=== PATIENT | female | born 1945 | race Caucasian/White ===

== ENCOUNTER → 2016-12-31 | Outpatient (CLI) | payer OTHER ==
--- NOTE | 2016-12-31 11:08 | KCIC ---
EXAM: Lumbar spine MRI without contrast. HISTORY: Right lower extremity radiculopathy and lower back pain. TECHNIQUE: Multiplanar, multisequence magnetic resonance imaging of the lumbar spine was performed without contrast. COMPARISON: None. FINDINGS: There is grade 1 anterolisthesis of L4 on L5, measuring 3 mm. There is minimal endplate remodeling at multiple levels. There is a small T2 hyperintense and T1 hypointense lesion within the anterior inferior aspect of L1, likely an atypical hemangioma. No suspicious osseous lesion is seen. The conus terminates at L2. There is a small left renal cyst. There is bilateral renal atrophy. At L1-L2, there is left greater than right anterior endplate osteophytosis. There is no stenosis. At L2-L3, there is a disc bulge and right anterior predominant endplate osteophytosis. There is mild right and moderate left facet arthropathy. There is hypertrophy of the ligamentum flavum. There is no stenosis. At L3-L4, there is a disc bulge with suspected left extraforaminal annular tear and right anterior predominant endplate osteophytosis. There is moderate facet arthropathy. There is hypertrophy of the ligamentum flavum. There is minimal central canal stenosis. At L4-L5, there is a posterior central disc protrusion and annular tear superimposed on a disc bulge and endplate remodeling. There is severe facet arthropathy. There is a 7 mm right facet joint synovial cyst projecting into the right lateral central canal abutting the traversing right nerve roots. There is hypertrophy of the ligamentum flavum. There is grade 1 anterolisthesis. There is mild to moderate central canal stenosis. At L5-S1, there is moderate facet arthropathy. There is no stenosis. IMPRESSION: 1. Multilevel degenerative change within the lumbar spine, described in detail above. These findings are most significant at L4-L5, resulting in mild to moderate central canal stenosis with deviation of the traversing right nerve roots. 2. Grade 1 anterolisthesis of L4 and L5. Electronically signed by: Johana Rausch MD (12/31/2016 11:04 AM) [facility]
== END ==
LOC: KCIC MRI 09:49
PROVIDERS: ATTEND Family Medicine
CPT/HCPCS: 72148

== ENCOUNTER 2017-01-19 18:58 | Inpatient (IN) | payer MEDICARE, OTHER ==
[~2017-01-19] VITALS: Ht 170.2 cm; Wt 115.2 kg
[2017-01-19 19:50] VITALS: BP 165/94
[2017-01-19] MEDS ORDERED: MORPHINE SULFATE 4 MG/ML DISP.SYRIN. IV PRN (22:30)
[2017-01-19] MEDS ORDERED: ACETAMINOPHEN 325 MG TABLET. PO PRN (22:30)
[2017-01-19] MEDS ORDERED: ONDANSETRON PF 4 MG/2 ML VIAL. IV PRN (22:30)
[2017-01-19 23:00] VITALS: BP 136/56
[2017-01-20] VITALS (9 sets, daily range): BP systolic 77–179; BP diastolic 33–75
[2017-01-20] MEDS ORDERED: OMEP20TA63 PO (04:58)
[2017-01-20] MEDS ORDERED: PROP225T2 PO (04:58)
[2017-01-20] MEDS ORDERED: DOCU100C28 PO (04:58)
[2017-01-20] MEDS ORDERED: APIX5TAB PO (04:58)
[2017-01-20 05:22] LABS: INR 1.4 (0.8-1.1); PROTHROMBIN TIME PATIENT 16.1 SEC (11.7-14.0)
--- NOTE | 2017-01-20 08:05 | EKG ---
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
--- NOTE | 2017-01-20 08:58 | PDOC1 ---
History and Physical Date of Admission Date of Admission DATE: 01/20/17 TIME: 08:55 History of Present Illness History of Present Illness transfer from [facility] for left knee pain, acute fall and hematoma with large bulla on anterior skin. She has been dizzy when she stands, and has seen a farm rancher, known problem of blood pressure dropping when she stands, has afib, has been admitted to [facility] for RVR, has been rate controlled now on rhythmol, and takes Eliquis for CVA prevention. She fell at home, and was able to walk to [facility], Past Medical History Cardiovascular: AFIB, CHF Pulmonary: No pertinent hx GI: No pertinent hx Heme/Onc: No pertinent hx Hepatobiliary: No pertinent hx Psych: No pertinent hx Musculoskeletal: low back pain Rheumatologic: No pertinent hx Infectious disease: No pertinent hx ENT: No pertinent hx Endocrine: No pertinent hx Dermatology: No pertinent hx Family History Family History: No Significant Social History Smoke: No ALCOHOL: none Drugs: None Current Medications Current Medications Current Medications Ondansetron HCl (Zofran) 4 mg PRN Q6HRS PRN IV NAUSEA/VOMITING; Start at 22:30 Acetaminophen (Tylenol) 650 mg PRN Q6HRS PRN PO MILD PAIN / TEMP; Start at 22:30 Morphine Sulfate 2 mg PRN Q2HR PRN IV PAIN; Start 01/19/17 at 22:30 Docusate Sodium (Colace) 100 mg DAILY PO ; Start 01/20/17 at 09:00 Pantoprazole Sodium (Protonix) 40 mg DAILYAC PO ; Start 01/20/17 at 09:00 Propafenone HCl (Rythmol) 225 mg Q8HRS PO ; Start 01/20/17 at 14:00 Active Scripts Active Reported Docusate Sodium 100 Mg Capsule 100 Mg PO Prilosec Otc (Omeprazole Magnesium) 20 Mg Tablet.dr 20 Mg PO DAILY Propafenone Hcl 225 Mg Tablet 225 Mg PO Q8HRS Eliquis (Apixaban) 5 Mg Tablet 5 Mg PO BID Allergies Allergies: Coded Allergies: Sulfa (Sulfonamide Antibiotics) (Verified Allergy, Unknown, 01/19/17) ROS General: YES: Fatigue, No: Chills, Night Sweats, Malaise, Appetite, Other PSYCHOLOGICAL ROS: No: Anxiety, Behavioral Disorder, Concentration difficultie , Decreased libido, Depression, Disorientation, Hallucinations, Hostility, Irritablity, Memory difficulties, Mood Swings, Obsessive thoughts, Other Eyes: No Blurry vision, No Decreased vision, No Double vision, No Dry eyes, No Excessive tearing, No Eye Pain, No Itchy Eyes, No Loss of vision, No Photophobia , No Scotomata, No Uses contacts, No Uses glasses, No Other HEENT: No: Heacaches, Visual Changes, Hearing change, Nasal congestion, Nasal discharge, Oral lesions, Sinus pain, Sore Throat, Epistaxis, Sneezing, Snoring, Tinnitus, Vertigo, Vocal changes, Other Cardiovascular: No Chest Pain, No Palpitations, No Orthopnea, No Paroxysmal Noc. Dyspnea, No Edema, No Lt Headedness, No Other Gastrointestinal: Yes Other (only stools twice a week, tuesday and tuesday), No Nausea, No Vomiting, No Abdominal Pain, No Diarrhea, No Constipation, No Melena, No Hematochezia Genitourinary: No Dysuria, No Frequency, No Incontinence, No Hematuria, No Retention, No Discharge, No Urgency, No Pain, No Flank Pain, No Other, No , No , No , No , No , No , No Musculoskeletal: Yes Joint Stiffness, Yes Pain In: (back), No Gait Disturbance, No Joint Pain, No Joint Swelling, No Muscle Pain, No Muscular Weakness, No Swelling In:, No Other Neurological: No Behavorial Changes, No Bowel/Bladder ControlChng, No Confusion , No Dizziness, No Gait Disturbance, No Headaches, No Impaired Coord/balance, No Memory Loss, No Numbness/Tingling, No Seizures, No Speech Problems, No Tremors, No Visual Changes, No Weakness, No Other Skin: Yes Dry Skin, No Eczema, No Hair Changes, No Lumps, No Mole Changes, No Mottling, No Nail Changes, No Pruritus, No Rash, No Skin Lesion Changes, No Other, No Acne Physical Exam General: Alert, Cooperative, No acute distress HEENT: Atraumatic, PERRLA, EOMI Lungs: Clear to auscultation, Normal air movement Heart: no gallops, no murmurs, irregularly irregular Abdomen: Normal bowel sounds, Soft Rectal Exam: not examined Extremities: No edema Skin: No rashes, Other (large bruise to left knee area, soft and clearing from pictures she took last night, large 9 cm bullae area to knee ) Neuro: Normal tone, Cranial nerves 3-12 NL Psych/Mental Status: Mood NL Vitals Vitals Vital Signs Date Time Temp Pulse Resp B/P (MAP) Pulse Ox O2 Delivery O2 Flow Rate FiO2 01/20/17 07:00 97.8 63 18 137/66 (89) 99 Room Air 97.8 Labs Labs Laboratory Tests Test 01/20/17 03:20 Prothrombin Time 16.1 SEC (11.7-14.0) Prothromb Time International Ratio 1.4 (0.8-1.1) Laboratory Tests Test 01/20/17 03:20 Prothrombin Time 16.1 SEC (11.7-14.0) Prothromb Time International Ratio 1.4 (0.8-1.1) VTE Prophylaxis Ordered VTE Prophylaxis Devices: No VTE Pharmacological Prophylaxi: Yes Assessment/Plan Assessment/Plan afib, rate controlled fall, likely from known orthostatic hypotension right knee superficial hematoma with large bulla, appears to have to hemarthrosis on my exam obesity, BMI 38 back pain, spinal stenosis, she has an outpatient appointment on 01/[address], she reports her MRI was done at [facility] at the [facility] , recent MRI spine, showing lumbar spinal stenosis She has OA both knee, takes Naproxen, her farm rancher has decreased dose, she is not interested in knee replacement surg. DOUGLAS VIDALES MD Jan 20, 2017 08:58
[2017-01-20] MEDS: DOCUSATE SODIUM 100 MG CAPSULE. PO SCH (09:00)
[2017-01-20] MEDS: PANTOPRAZOLE 40 MG TABLET.DR. PO SCH (09:00)
--- NOTE | 2017-01-20 09:00 | RAD ---
Portable left knee, 2 views, 01/20/2017: History: Fall, hematoma There is mild marginal spurring at the knee joint. There is more extensive spurring at the patellofemoral articulation. No acute fracture or dislocation is identified. There is subcutaneous edema most prominent anteriorly. There is an additional ill-defined density in the subcutaneous fat in the right suprapatellar region compatible with the given history of a hematoma. No large joint effusion is seen. IMPRESSION: 1. Moderate degenerative change. 2. No acute bony abnormality is detected.
--- NOTE | 2017-01-20 12:18 | PDOC2 ---
CONSULT Date of Consult Date of Consult DATE: 01/20/17 TIME: 12:11 Reason for Consult Reason for Consult: lumbar stenosis History of Present Illness Reason for Visit: 71yo F who sustained a fall with left knee hematoma. Neurosurgery is consulted for lumbar stenosis. She denies radicular pain or paresthesia but admits to chronic low back pain. She reports more frequent falls over the last several weeks. She reports associated orthostasis/lightheadedness with falls. She denies focal weakness or other changes (with exception of knee injury). She denies any low back treatments. Past Medical History Cardiovascular: AFIB, CHF Pulmonary: No pertinent hx GI: No pertinent hx Heme/Onc: No pertinent hx Hepatobiliary: No pertinent hx Psych: No pertinent hx Musculoskeletal: low back pain Rheumatologic: No pertinent hx Infectious disease: No pertinent hx ENT: No pertinent hx Endocrine: No pertinent hx Dermatology: No pertinent hx Family History Family History: No Significant Social History No ALCOHOL: none Drugs: None Current Medications Current Medications Current Medications Ondansetron HCl (Zofran) 4 mg PRN Q6HRS PRN IV NAUSEA/VOMITING; Start at 22:30 Acetaminophen (Tylenol) 650 mg PRN Q6HRS PRN PO MILD PAIN / TEMP; Start at 22:30 Morphine Sulfate 2 mg PRN Q2HR PRN IV PAIN; Start 01/19/17 at 22:30 Docusate Sodium (Colace) 100 mg DAILY PO ; Start 01/20/17 at 09:00 Pantoprazole Sodium (Protonix) 40 mg DAILYAC PO ; Start 01/20/17 at 09:00 Propafenone HCl (Rythmol) 225 mg Q8HRS PO ; Start 01/20/17 at 14:00 Active Scripts Active Reported Docusate Sodium 100 Mg Capsule 100 Mg PO Prilosec Otc (Omeprazole Magnesium) 20 Mg Tablet.dr 20 Mg PO DAILY Propafenone Hcl 225 Mg Tablet 225 Mg PO Q8HRS Eliquis (Apixaban) 5 Mg Tablet 5 Mg PO BID Allergies Allergies: Coded Allergies: Sulfa (Sulfonamide Antibiotics) (Verified Allergy, Unknown, 01/19/17) ROS Review of System General: YES: Fatigue, No: Chills, Night Sweats, Malaise, Appetite, Other PSYCHOLOGICAL ROS: No: Anxiety, Behavioral Disorder, Concentration difficultie , Decreased libido, Depression, Disorientation, Hallucinations, Hostility, Irritablity, Memory difficulties, Mood Swings, Obsessive thoughts, Other Eyes: No Blurry vision, No Decreased vision, No Double vision, No Dry eyes, No Excessive tearing, No Eye Pain, No Itchy Eyes, No Loss of vision, No Photophobia , No Scotomata, No Uses contacts, No Uses glasses, No Other HEENT: No: Heacaches, Visual Changes, Hearing change, Nasal congestion, Nasal discharge, Oral lesions, Sinus pain, Sore Throat, Epistaxis, Sneezing, Snoring, Tinnitus, Vertigo, Vocal changes, Other Cardiovascular: No Chest Pain, No Palpitations, No Orthopnea, No Paroxysmal Noc. Dyspnea, No Edema, No Lt Headedness, No Other Gastrointestinal: Yes Other (only stools twice a week, tuesday and tuesday), No Nausea, No Vomiting, No Abdominal Pain, No Diarrhea, No Constipation, No Melena, No Hematochezia Genitourinary: No Dysuria, No Frequency, No Incontinence, No Hematuria, No Retention, No Discharge, No Urgency, No Pain, No Flank Pain, No Other, No , No , No , No , No , No , No Musculoskeletal: Yes Joint Stiffness, Yes Pain In: (back), No Gait Disturbance, No Joint Pain, No Joint Swelling, No Muscle Pain, No Muscular Weakness, No Swelling In:, No Other Neurological: No Behavorial Changes, No Bowel/Bladder ControlChng, No Confusion , No Dizziness, No Gait Disturbance, No Headaches, No Impaired Coord/balance, No Memory Loss, No Numbness/Tingling, No Seizures, No Speech Problems, No Tremors, No Visual Changes, No Weakness, No Other Skin: Yes Dry Skin, No Eczema, No Hair Changes, No Lumps, No Mole Changes, No Mottling, No Nail Changes, No Pruritus, No Rash, No Skin Lesion Changes, No Other, No Acne Physical Exam Physical Exam neuro intact within limits of exam, left knee swollen with ecchymoses and in dressing General: Alert, Oriented X3, Cooperative, No acute distress HEENT: Atraumatic, PERRLA, EOMI Lungs: Other (respirations nonlabored) Heart: Regular rate Abdomen: Soft Extremities: Other (left knee swollen with ecchymoses and in dressing) Neuro: Strength at 5/5 X4 ext (left knee not tested due to injury), Other (DTR symmetric except left knee not tested due to injury) Psych/Mental Status: Mental status NL Vitals VITALS Vital Signs Date Time Temp Pulse Resp B/P (MAP) Pulse Ox O2 Delivery O2 Flow Rate FiO2 01/20/17 07:00 97.8 63 18 137/66 (89) 99 Room Air 97.8 Labs Labs Laboratory Tests Test 01/20/17 03:20 Prothrombin Time 16.1 SEC (11.7-14.0) Prothromb Time International Ratio 1.4 (0.8-1.1) Laboratory Tests Test 01/20/17 03:20 Prothrombin Time 16.1 SEC (11.7-14.0) Prothromb Time International Ratio 1.4 (0.8-1.1) Images Images MRI lumbar spine from 12/31/16 with diffuse degenerative changes, fairly prominent central stenosis L4-5 Assessment/Plan Assessment/Plan 71F with left knee injury s/p fall -lumbar stenosis with low back pain, denies radicular complaints or focal weakness -neuro intact within limits of exam -reported orthostasis -first and foremost, recommend tx left knee -for low back pain recommend therapy -if otherwise stable neurologically, may continue to follow-up on outpt basis with NS to monitor progress SAM AVALOS MD Jan 20, 2017 12:18
--- NOTE | 2017-01-20 17:00 | PDOC2 ---
CONSULT Date of Consult Date of Consult DATE: 01/20/17 TIME: 12:30 Reason for Consult Reason for Consult: left knee hematoma Referring Physician Referring Physician: ER Identification/Chief Complaint Chief Complaint left knee pain Problems: Source Source: Chart review, Patient History of Present Illness Reason for Visit: Ms. Stanley is a 71 year old female patient who was transferred here from [place]. She has known orthostatic hypotension and fell while standing up at home yesterday, falling onto her left knee. She was able to walk after the fall, but her knee became increasingly swollen, ecchymotic, and a large blister began to form. She is on Eliquis. Past Medical History Cardiovascular: AFIB, CHF Pulmonary: No pertinent hx GI: No pertinent hx Heme/Onc: No pertinent hx Hepatobiliary: No pertinent hx Psych: No pertinent hx Musculoskeletal: low back pain Rheumatologic: No pertinent hx Infectious disease: No pertinent hx ENT: No pertinent hx Endocrine: No pertinent hx Dermatology: No pertinent hx Past Surgical History Past Surgical History: No pertinent history Family History Family History: No Significant Social History No ALCOHOL: none Drugs: None Current Medications Current Medications Current Medications Ondansetron HCl (Zofran) 4 mg PRN Q6HRS PRN IV NAUSEA/VOMITING; Start at 22:30 Acetaminophen (Tylenol) 650 mg PRN Q6HRS PRN PO MILD PAIN / TEMP; Start at 22:30 Morphine Sulfate 2 mg PRN Q2HR PRN IV PAIN; Start 01/19/17 at 22:30 Docusate Sodium (Colace) 100 mg DAILY PO ; Start 01/20/17 at 09:00 Pantoprazole Sodium (Protonix) 40 mg DAILYAC PO ; Start 01/20/17 at 09:00 Propafenone HCl (Rythmol) 225 mg Q8HRS PO ; Start 01/20/17 at 14:00 Active Scripts Active Reported Docusate Sodium 100 Mg Capsule 100 Mg PO Prilosec Otc (Omeprazole Magnesium) 20 Mg Tablet.dr 20 Mg PO DAILY Propafenone Hcl 225 Mg Tablet 225 Mg PO Q8HRS Eliquis (Apixaban) 5 Mg Tablet 5 Mg PO BID Allergies Allergies: Coded Allergies: Sulfa (Sulfonamide Antibiotics) (Verified Allergy, Unknown, 01/19/17) Physical Exam General: Alert, Oriented X3, Cooperative, No acute distress HEENT: Atraumatic, EOMI Lungs: Normal air movement Heart: Regular rate Abdomen: Soft Extremities: No clubbing, No cyanosis, Normal pulses, Other (Trace edema to bilateral lower extremities ) Skin: No rashes, No breakdown Neuro: Normal speech, Sensation intact Psych/Mental Status: Mental status NL, Mood NL MUSCULOSKELETAL: Other (There is a large bullae over anterior left knee, measuring approximately 10cm x 10cm. There is ecchymosis surrounding the knee. Small joint effusion. Range of motion is intact, but is painful at the extremes. Tenderness to palpation along the joint lines. Calf soft and nontender with a negative Leighton's sign. Peripheral pulses and light touch sensation intact. ) Vitals VITALS Vital Signs Date Time Temp Pulse Resp B/P (MAP) Pulse Ox O2 Delivery O2 Flow Rate FiO2 01/20/17 15:00 97.9 68 18 118/50 (72) 97 Room Air 97.9 Labs Labs Laboratory Tests Test 01/20/17 03:20 Prothrombin Time 16.1 SEC (11.7-14.0) Prothromb Time International Ratio 1.4 (0.8-1.1) Laboratory Tests Test 01/20/17 03:20 Prothrombin Time 16.1 SEC (11.7-14.0) Prothromb Time International Ratio 1.4 (0.8-1.1) Images Images Left knee x-ray images and report reviewed. There is no fracture, dislocation, or acute bony finding. Small bony density posteriorly, likely a loose body. Assessment/Plan Assessment/Plan Dr. Hernandez recommended aspiration of the blister. There is a small joint effusion , but not enough to aspirate. Daily dressing changes with Xeroform, ABDs, and knee net. Apply ice to the knee and elevate the LLE. From ortho standpoint, she may be discharged home on oral antibiotics. She may followup with us outpatient on an as-needed basis. Procedure: The knee was cleansed with chlorhexidine. Under sterile technique, Dr. Hernandez aspiration the large anterior blister and received about 5 cc of blood- tinged watery fluid. The skin was left intact. The knee was again cleansed with chlorhexidine and then dressed with Xeroform, ABDs, and knee net. The patient tolerated the procedure well. CARMEN MADERA Jan 20, 2017 16:59
[2017-01-20] MEDS: PROPAFENONE 150 MG TABLET. PO SCH ×2 (17:12→21:29)
[2017-01-21] VITALS (10 sets, daily range): BP systolic 71–145; BP diastolic 34–91
[2017-01-21] MEDS: PROPAFENONE 150 MG TABLET. PO SCH ×3 (05:52→21:04)
[2017-01-21] MEDS: PANTOPRAZOLE 40 MG TABLET.DR. PO SCH (07:30)
[2017-01-21] MEDS: DOCUSATE SODIUM 100 MG CAPSULE. PO SCH (08:42)
--- NOTE | 2017-01-21 14:26 | PDOC ---
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 orthostatic hypotention plan: fu with neurosx, no sx fu with ortho, blister taped, local treatment severe orthostatic hypotention, gentle ivf today card consult, may consider change meds for Afib, sinus now, hold eliquis for now HH tmr if ok History of Present Illness History of Present Illness ROS: no fever, chills, sob, chest pain dizzy for 1y + orthostatic low bp feels more stiff left knee Vitals Vitals Vital Signs Date Time Temp Pulse Resp B/P (MAP) Pulse Ox O2 Delivery O2 Flow Rate FiO2 01/21/17 11:05 62 18 71/54 (60) 98 01/21/17 11:00 Room Air 01/21/17 07:00 98.7 98.7 Physical Exam General: Alert, Oriented X3, Cooperative, No acute distress Heart: Regular rate, Normal S1, Normal S2 Lungs: Clear Abdomen: Normal bowel sounds, Soft Extremities: No clubbing, No cyanosis, Normal pulses, Other (Trace edema to bilateral lower extremities ) Skin: No rashes, No breakdown Comment Review of Relevant I have reviewed the following items aby (where applicable) has been applied. Labs Laboratory Tests Test 01/20/17 03:20 Prothrombin Time 16.1 SEC (11.7-14.0) Prothromb Time International Ratio 1.4 (0.8-1.1) Medications Current Medications Ondansetron HCl (Zofran) 4 mg PRN Q6HRS PRN IV NAUSEA/VOMITING; Start at 22:30 Acetaminophen (Tylenol) 650 mg PRN Q6HRS PRN PO MILD PAIN / TEMP; Start at 22:30 Morphine Sulfate 2 mg PRN Q2HR PRN IV PAIN; Start 01/19/17 at 22:30 Docusate Sodium (Colace) 100 mg DAILY PO ; Start 01/20/17 at 09:00 Pantoprazole Sodium (Protonix) 40 mg DAILYAC PO ; Start 01/20/17 at 09:00 Propafenone HCl (Rythmol) 225 mg Q8HRS PO Last administered on 01/21/17t 05:52 ; Start 01/20/17 at 14:00 Active Scripts Active Reported Docusate Sodium 100 Mg Capsule 100 Mg PO Prilosec Otc (Omeprazole Magnesium) 20 Mg Tablet.dr 20 Mg PO DAILY Propafenone Hcl 225 Mg Tablet 225 Mg PO Q8HRS Eliquis (Apixaban) 5 Mg Tablet 5 Mg PO BID Vitals/I & O Vital Sign - Last 24 Hours 01/20/17 01/20/17 01/20/17 01/20/17 15:00 17:12 19:00 20:00 Temp 97.9 97.8 97.9 97.8 Pulse 68 68 68 Resp 18 18 B/P (MAP) 118/50 (72) 118/50 143/75 (97) Pulse Ox 97 100 O2 Delivery Room Air Room Air Room Air 01/20/17 01/20/17 01/21/17 01/21/17 21:29 23:00 03:00 05:52 Temp 98.0 97.6 98.0 97.6 Pulse 78 65 63 69 Resp 18 18 B/P (MAP) 118/67 152/65 (94) 145/87 (106) 148/76 Pulse Ox 95 98 O2 Delivery Room Air Room Air 01/21/17 01/21/17 01/21/17 01/21/17 07:00 08:00 11:00 11:05 Temp 98.7 98.7 Pulse 63 75 62 Resp 18 18 18 B/P (MAP) 130/91 (104) 126/65 (85) 71/54 (60) Pulse Ox 96 99 98 O2 Delivery Room Air Room Air Room Air Intake and Output 01/20/17 01/20/17 01/21/17 14:59 22:59 06:59 Intake Total 900 ml Balance 900 ml DHEERAJ FRITZ MD Jan 21, 2017 14:26
[2017-01-21] MEDS ORDERED: traMADol 50 MG TABLET PO PRN (14:30)
[2017-01-21] MEDS ORDERED: ONDANSETRON PF 4 MG/2 ML VIAL. IV PRN (14:30)
[2017-01-21] MEDS ORDERED: DOCUSATE SODIUM 100 MG CAPSULE. PO PRN (14:30)
[2017-01-21] MEDS ORDERED: MORPHINE SULFATE 2 MG/ML DISP.SYRIN. IV PRN (14:30)
[2017-01-21] MEDS ORDERED: ACETAMINOPHEN 325 MG TABLET. PO PRN (14:30)
[2017-01-21] MEDS ORDERED: hydrALAZINE 20 MG/ML VIAL. IVP PRN (14:30)
[2017-01-21] MEDS ORDERED: IV NORMAL SALINE 1000ML BAG 1,000 ML IV ONE (15:00)
--- NOTE | 2017-01-21 15:09 | PDOC2 ---
CARDIAC CONSULT ALLERGIES ALLERGIES: Coded Allergies: Sulfa (Sulfonamide Antibiotics) (Verified Allergy, Unknown, 01/19/17) VITALS VITALS Vital Signs Date Time Temp Pulse Resp B/P (MAP) Pulse Ox O2 Delivery O2 Flow Rate FiO2 01/21/17 11:05 62 18 71/54 (60) 98 01/21/17 11:00 Room Air 01/21/17 07:00 98.7 98.7 EVEILNA MI APRN Jan 21, 2017 15:09
--- NOTE | 2017-01-21 15:14 | PDOC2 ---
FAIZA CERON RESTORATION OFFICER 01/21/17 1514: CARDIAC CONSULT DATE OF CONSULT Date of Consult DATE: 01/21/17 TIME: 15:05 REASON FOR CONSULT Reason for Consult: AFIB with orthostatic BP REFERRING PHYSICIAN Referring Physician: Barbara SOURCE Source: Chart review, Patient HISTORY OF PRESENT ILLNESS HISTORY OF PRESENT ILLNESS This is a 71 yo female admitted for complains of left knee pain after falling this morning. After which she has noticed increasing swelling to her knee with difficulty with ROM. on eliquis and Rythmol. After further conversation with her. She was actually getting into the tipple.me going through the door. She was on her way to the second door when she fell. She remembered being upright and the next thing she remembered was when she was about to hit the floor. There was no presyncopal symptoms at that time. No visual or auditory disturbances. Denies any CP, SOA, [place] or exertional CP. No n/v or diarrhea. In the last week she has experienced 6 falls with one of them she hurt her thumb otherwise nontraumatic till yesterday. On some of these falls she gets lightheaded but otherwise no significant symptoms. She is positive for PAFIB which she is being treated with Rythmol but no BB or CCB and on eliquis and taking naproxen daily. Denies any CAD and actually had stress test last yr which was ok accdg to her. She follows with [facility] cardiology Dr Hirsch who told her that she may need her leaky valve repaired and need to be checked again. She also had cardioversion for her AFIB last yr 10/2015. Denies any CVA , CAD, VTE. With this fall she has sustained left knee hematoma and during her stay with significant orthostasis. PAST MEDICAL HISTORY Cardiovascular: AFIB, HTN Pulmonary: No pertinent hx CENTRAL NERVOUS SYSTEM: Other (No pertinent history) GI: Constipation, GERD Musculoskeletal: low back pain, Osteoarthritis Rheumatologic: No pertinent hx Infectious disease: No pertinent hx ENT: No pertinent hx Renal/: No pertinent hx Endocrine: No pertinent hx Dermatology: No pertinent hx PAST SURGICAL HISTORY Past Surgical History: Cholecystectomy, Cataract Removal, Hysterectomy, Other ( retinal repair) FAMILY HISTORY Family History noncontributory to CV SOCIAL HISTORY Smoke: No ALCOHOL: none Drugs: None Lives: with Family ALLERGIES ALLERGIES: Coded Allergies: Sulfa (Sulfonamide Antibiotics) (Verified Allergy, Unknown, 01/19/17) ROS Review of System 14 point ROS evaluated with pertinent positives noted per HPI PHYSICAL EXAM General: Alert, Oriented X3, Cooperative, No acute distress HEENT: Atraumatic, Mucous membr. moist/pink Lungs: Clear to auscultation, Normal air movement Heart: Regular rate (off monitor), Normal S1, Normal S2, Other (3/6 systolic murmur to ELROY border) Abdomen: Soft Extremities: No cyanosis, Other (2+ bilateral LE pitting edema) Skin: No breakdown, No significant lesion Neuro: Normal speech, Sensation intact Psych/Mental Status: Mental status NL, Mood NL MUSCULOSKELETAL: Osteoarthritic changes both hands, Other (left knee hematoma) VITALS VITALS Vital Signs Date Time Temp Pulse Resp B/P (MAP) Pulse Ox O2 Delivery O2 Flow Rate FiO2 01/21/17 11:05 62 18 71/54 (60) 98 01/21/17 11:00 Room Air 01/21/17 07:00 98.7 98.7 ASSESSMENT/PLAN ASSESSMENT/PLAN 1. Syncope with traumatic knee injury: left knee with large hematoma, suspecting associated with orthostasis. No seizure symptoms. 2. PAFIB: EKG noted with SR. on propafenone but no BB or CCB. 10/2015 cardioversion 3. Chronic anticoagulation: with eliquis 4. Multiple falls: 6x in the last 3 weeks with sometimes lightheadedness 5. Chronic NSAID use 6. Hx of Aortic insufficiency Recommendations 1. Not a candidate for further NOAC/OAC. ECASA 81 mg for stroke prevention 2. Discussed risks involve regarding anticoagulation with significant number of falls that she has had. 3. May need CT/MRI knee to note any hairline fracture, will defer further to ortho 4. QTc good, continue propafenone for now. Start tele monitor. 5. Abdominal binder before being upright and will recheck orthostatic readings again once binder is on 6. Agree with IVF. If med is needed will likely elect Florinef and not midodrine. 7. TSH, Mg, CMP, H/H and TTE Problems: WILLIS BROTHERS MD 01/22/17 0910: CARDIAC CONSULT ALLERGIES ALLERGIES: Coded Allergies: Sulfa (Sulfonamide Antibiotics) (Verified Allergy, Unknown, 01/19/17) ASSESSMENT/PLAN ASSESSMENT/PLAN Patient seen and examined 01/21/17 (late entry). Agree with [employer]'s assessment and plan. Syncope/recurrent falls most probably secondary to orthostasis. Patient has history of paroxysmal atrial fibrillation and has had cardioversion in the past number presently in sinus rhythm. Continue propafenone. Patient probably a poor candidate for long-term anticoagulation secondary to fall risk. Agree with intravenous hydration. If orthostasis does not resolve, we will consider Florinef. 2-D echo showed normal LV systolic function with mild to moderate aortic insufficiency. Plan for event monitor as an outpatient to rule out any significant pauses. Thank you for your consultation. Problems: FAIZA CERON APRN Jan 21, 2017 15:14 WILLIS BROTHERS MD Jan 22, 2017 09:10
[2017-01-21 15:55] LABS: HEMATOCRIT 29.3 % (36.0-47.0); HEMOGLOBIN 9.5 g/dL (12.0-15.5); RED BLOOD COUNT 3.09 x10^6/uL (3.50-5.40); RED CELL DISTRIBUTION WIDTH 14.1 % (11.5-14.5); WHITE BLOOD COUNT 8.1 x10^3/uL (4.0-11.0)
[2017-01-21 16:27] LABS: ALBUMIN 2.9 g/dL (3.4-5.0); ALBUMIN/GLOBULIN RATIO 0.9 (1.0-1.7); CALCIUM 8.1 mg/dL (8.5-10.1); CREATININE 1.1 mg/dL (0.6-1.0); GFR 49.1; POTASSIUM 4.3 mmol/L (3.5-5.1); TOTAL BILIRUBIN 0.3 mg/dL (0.2-1.0); TOTAL PROTEIN 6.1 g/dL (6.4-8.2)
--- NOTE | 2017-01-21 16:47 | CARD ---
APPROVED REPORT EXAM: Two-dimensional and M-mode echocardiogram with Doppler and color Doppler. Other Information Quality : Average INDICATION Arrhythmia Atrial Fibrillation 2D DIMENSIONS Left Atrium(2D)4.9 (1.6-4.0cm)IVSd1.0 (0.7-1.1cm) Aortic Root(2D)3.7 (2.0-3.7cm)LVDd6.0 (3.9-5.9cm) LVOT Diameter2.2 (1.8-2.4cm)PWd1.1 (0.7-1.1cm) LVDs3.9 (2.5-4.0cm)FS (%) 34.1 % SV110.5 mlLVEF(%)62.1 (>50%) Aortic Valve AoV Peak David.154.3cm/sAoV VTI29.6cm AO Peak GR.9.5mmHgLVOT Peak David.121.1cm/s AO Mean GR.5mmHgAVA (VMAX)2.94cm2 JACQUE (VTI)3.09gk4DN P 1/2 Asps929aa Mitral Valve MV E Khobchrz09.1cm/sMV DECEL [id number] MV A Hsljfmfb852.2cm/sE/A Ratio0.5 Tricuspid Valve TR P. Lligqtho527qa/sRAP WRMEKKST3eaOs TR Peak Gr.22ocAvGHJW26wwJo LEFT VENTRICLE The left ventricle is normal size. There is mild concentric left ventricular hypertrophy. Left ventri santana systolic function is normal. The Ejection Fraction is 55-60%. Septal bounce present. Transmitral Doppler flow pattern is Grade I-abnormal relaxation pattern. Transmitral Doppler flow pattern is norm al for age. RIGHT VENTRICLE The right ventricle is mildly dilated. The right ventricular systolic function is normal. ATRIA The left atrium is moderately dilated. The right atrium size is normal. The interatrial septum is int act with no evidence for an atrial septal defect or patent foramen ovale as noted on 2-D or Doppler i maging. AORTIC VALVE The aortic valve is mildly thickened but opens well. Doppler and Color Flow revealed mild to moderate aortic regurgitation. There is no significant aortic valvular stenosis. MITRAL VALVE The mitral valve is calcified but opens well. There is no evidence of mitral valve prolapse. There is no mitral valve stenosis. Doppler and Color-flow revealed mild mitral regurgitation. TRICUSPID VALVE The tricuspid valve is normal in structure. Doppler and Color Flow revealed mild tricuspid regurgitat ion. The PA pressure was estimated at 13 mmHg. There is no tricuspid valve prolapse or vegetation. Th ere is no tricuspid valve stenosis. PULMONIC VALVE The pulmonic valve is mildly thickened.nction. Doppler and Color Flow revealed mild pulmonic valvular regurgitation. There is no pulmonic valvular stenosis. GREAT VESSELS The aortic root appears enlarged. The ascending aorta appears mildly dilated. The IVC is normal in si ze and collapses >50% with inspiration. PERICARDIAL EFFUSION There is no pleural effusion. There is no evidence of significant pericardial effusion. Critical Notification Critical Value: No <Conclusion> The left ventricle is normal size. Left ventricle systolic function is normal. The Ejection Fraction is 55-60%. There is mild concentric left ventricular hypertrophy. The left atrium is moderately dilated. There is no significant aortic valvular stenosis. Doppler and Color Flow revealed mild to moderate aortic regurgitation. Doppler and Color-flow revealed mild mitral regurgitation. Doppler and Color Flow revealed mild tricuspid regurgitation. The PA pressure was estimated at 13 mmHg. The ascending aorta appears mildly dilated.
[2017-01-21] MEDS: FLUDROCORTISONE 0.1 MG TABLET PO SCH (20:38)
[2017-01-21] MEDS: ASPIRIN ENTERIC COATED 81 MG TABLET.DR. PO SCH (20:38)
[2017-01-22] VITALS (8 sets, daily range): BP systolic 79–143; BP diastolic 43–79
[2017-01-22 04:57] LABS: BASO # 0.1 x10^3/uL (0.0-0.2); BASO % 1 % (0-3); EOS % 3 % (0-3); HEMATOCRIT 26.7 % (36.0-47.0); HEMOGLOBIN 8.8 g/dL (12.0-15.5); LYMPH # 2.6 x10^3/uL (1.0-4.8); LYMPH % 33 % (24-48); MEAN CORPUSCULAR HEMOGLOBIN 31 pg (25-35); MEAN CORPUSCULAR HGB CONC 33 g/dL (31-37); MEAN CORPUSCULAR VOLUME 94 fL (79-100); MONO % 8 % (0-9); NEUT % 55 % (31-73); PLATELET COUNT 170 x10^3/uL (140-400); RED BLOOD COUNT 2.83 x10^6/uL (3.50-5.40); RED CELL DISTRIBUTION WIDTH 13.9 % (11.5-14.5); WHITE BLOOD COUNT 7.9 x10^3/uL (4.0-11.0)
[2017-01-22 05:23] LABS: CALCIUM 7.9 mg/dL (8.5-10.1); GFR 54.8
[2017-01-22] MEDS: PROPAFENONE 150 MG TABLET. PO SCH ×2 (05:29→15:17)
[2017-01-22] MEDS: FLUDROCORTISONE 0.1 MG TABLET PO SCH (08:22)
[2017-01-22] MEDS: DOCUSATE SODIUM 100 MG CAPSULE. PO SCH (08:22)
[2017-01-22] MEDS: ASPIRIN ENTERIC COATED 81 MG TABLET.DR. PO SCH (08:22)
[2017-01-22] MEDS: PANTOPRAZOLE 40 MG TABLET.DR. PO SCH (08:23)
--- NOTE | 2017-01-22 10:24 | PDOC ---
PROGRESS NOTES Subjective Subjective Dizziness slightly improved. Complaining of knee pain. Objective Objective Vital Signs Date Time Temp Pulse Resp B/P (MAP) Pulse Ox O2 Delivery O2 Flow Rate FiO2 01/22/17 08:26 Room Air 01/22/17 07:00 97.9 64 18 140/50 (80) 94 97.9 Intake and Output 01/22/17 07:00 Intake Total 900 ml Balance 900 ml Intake Oral 900 ml # Voids 8 Physical Exam Abdomen: Soft Heart: Regular rate (off monitor), Normal S1, Normal S2, Other (3/6 systolic murmur to ELROY border) Extremities: No cyanosis, Other (2+ bilateral LE pitting edema) General: Alert, Oriented X3, Cooperative, No acute distress HEENT: Atraumatic, Mucous membr. moist/pink Lungs: Clear to auscultation, Normal air movement MUSCULOSKELETAL: Other (left knee hematoma) Neuro: Normal speech, Sensation intact Psych/Mental Status: Mental status NL, Mood NL Skin: No breakdown, No significant lesion Assessment Assessment 1. Syncope with traumatic knee injury: left knee with large hematoma. Syncope most probably secondary to orthostasis. Telemetry without any significant pauses. 2-D echo showed normal LV function with mild to moderate aortic insufficiency. Florinef initiated this admission. Repeat orthostatics. We'll consider event monitor as an outpatient. 2. PAFIB: s/p cardioversion in the past, maintaining sinus rhythm with propafenone. Patient poor candidate for long-term anticoagulation secondary to recurrent falls. Comment Review of Relevant I have reviewed the following items aby (where applicable) has been applied. Labs Laboratory Tests Test 01/21/17 15:45 01/22/17 04:40 White Blood Count 8.1 x10^3/uL (4.0-11.0) 7.9 x10^3/uL (4.0-11.0) Red Blood Count 3.09 x10^6/uL (3.50-5.40) 2.83 x10^6/uL (3.50-5.40) Hemoglobin 9.5 g/dL (12.0-15.5) 8.8 g/dL (12.0-15.5) Hematocrit 29.3 % (36.0-47.0) 26.7 % (36.0-47.0) Mean Corpuscular Volume 95 fL (79-100) 94 fL (79-100) Mean Corpuscular Hemoglobin 31 pg (25-35) 31 pg (25-35) Mean Corpuscular Hemoglobin Concent 33 g/dL (31-37) 33 g/dL (31-37) Red Cell Distribution Width 14.1 % (11.5-14.5) 13.9 % (11.5-14.5) Platelet Count 181 x10^3/uL (140-400) 170 x10^3/uL (140-400) Sodium Level 140 mmol/L (136-145) 139 mmol/L (136-145) Potassium Level 4.3 mmol/L (3.5-5.1) 4.0 mmol/L (3.5-5.1) Chloride Level 104 mmol/L (98-107) 106 mmol/L (98-107) Carbon Dioxide Level 31 mmol/L (21-32) 31 mmol/L (21-32) Anion Gap 5 (6-14) 2 (6-14) Blood Urea Nitrogen 20 mg/dL (7-20) 20 mg/dL (7-20) Creatinine 1.1 mg/dL (0.6-1.0) 1.0 mg/dL (0.6-1.0) Estimated GFR (Cockcroft-Gault) 49.1 54.8 BUN/Creatinine Ratio 18 (6-20) Glucose Level 136 mg/dL (70-99) 103 mg/dL (70-99) Calcium Level 8.1 mg/dL (8.5-10.1) 7.9 mg/dL (8.5-10.1) Total Bilirubin 0.3 mg/dL (0.2-1.0) Aspartate Amino Transf (AST/SGOT) 13 U/L (15-37) Alanine Aminotransferase (ALT/SGPT) 17 U/L (14-59) Alkaline Phosphatase 82 U/L (46-116) Total Protein 6.1 g/dL (6.4-8.2) Albumin 2.9 g/dL (3.4-5.0) Albumin/Globulin Ratio 0.9 (1.0-1.7) Thyroid Stimulating Hormone (TSH) 2.864 uIU/mL (0.358-3.74) Neutrophils (%) (Auto) 55 % (31-73) Lymphocytes (%) (Auto) 33 % (24-48) Monocytes (%) (Auto) 8 % (0-9) Eosinophils (%) (Auto) 3 % (0-3) Basophils (%) (Auto) 1 % (0-3) Neutrophils # (Auto) 4.3 x10^3uL (1.8-7.7) Lymphocytes # (Auto) 2.6 x10^3/uL (1.0-4.8) Monocytes # (Auto) 0.6 x10^3/uL (0.0-1.1) Eosinophils # (Auto) 0.3 x10^3/uL (0.0-0.7) Basophils # (Auto) 0.1 x10^3/uL (0.0-0.2) Medications Current Medications Acetaminophen (Tylenol) 650 mg PRN Q6HRS PRN PO FEVER; Start 01/21/17 at 14:30 ; Status UNV Aspirin (Ecotrin) 81 mg DAILYWBKFT PO Last administered on 01/22/17 08:22; Start 01/21/17 at 19:00 Docusate Sodium (Colace) 100 mg PRN DAILY PRN PO CONSTIPATION; Start 01/21/17 at 14:30 Fludrocortisone Acetate (Florinef) 0.1 mg DAILY PO Last administered on 08:22; Start 01/21/17 at 18:30 Hydralazine HCl (Apresoline Inj) 10 mg PRN Q4HRS PRN IVP ELEVATED BP, SEE COMMENTS; Start 01/21/17 at 14:30 Morphine Sulfate 2 mg PRN Q2HR PRN IV PAIN; Start 01/21/17 at 14:30; Status UNV Ondansetron HCl (Zofran) 4 mg PRN Q6HRS PRN IV NAUSEA/VOMITING; Start at 14:30; Status UNV Sodium Chloride 1,000 ml @ 75 mls/hr 1X ONCE IV Last administered on 15:45; Start 01/21/17 at 15:00; Stop 01/22/17 at 04:19; Status DC Tramadol HCl (Ultram) 50 mg PRN Q6HRS PRN PO PAIN Last administered on 08:26; Start 01/21/17 at 14:30 Vitals/I & O Vital Sign - Last 24 Hours 01/21/17 01/21/17 01/21/17 01/21/17 11:00 11:05 15:00 15:44 Temp 98.4 98.4 Pulse 75 62 65 Resp 18 18 18 B/P (MAP) 126/65 (85) 71/54 (60) 106/56 (73) 130/91 Pulse Ox 99 98 99 O2 Delivery Room Air Room Air 01/21/17 01/21/17 01/21/17 01/21/17 18:00 18:05 18:10 19:00 Temp 97.6 97.6 Pulse 69 73 125 73 Resp 18 B/P (MAP) 122/69 (86) 109/56 (73) 72/34 (47) 109/56 (73) Pulse Ox 96 96 94 99 O2 Delivery Room Air 01/21/17 01/21/17 01/21/17 01/22/17 20:00 21:04 23:00 03:00 Temp 98.0 97.8 98.0 97.8 Pulse 125 67 68 Resp 18 18 B/P (MAP) 72/34 133/90 (104) 143/79 (100) Pulse Ox 95 96 O2 Delivery Room Air Room Air Room Air 01/22/17 01/22/17 01/22/17 05:29 07:00 08:26 Temp 97.9 97.9 Pulse 66 64 Resp 18 B/P (MAP) 147/49 140/50 (80) Pulse Ox 94 O2 Delivery Room Air Room Air Intake and Output 01/21/17 01/21/17 01/22/17 15:00 23:00 07:00 Intake Total 900 ml Balance 900 ml WILLIS BROTHERS MD Jan 22, 2017 10:24
[2017-01-22] MEDS ORDERED: DOXY100C2 PO (11:44)
[2017-01-22] MEDS ORDERED: ASPI-612 PO (11:44)
[2017-01-22] MEDS ORDERED: FLUD0.1T PO (11:44)
[2017-01-22] MEDS ORDERED: DOXYCYCLINE HYCLATE 100 MG TABLET PO ONE (11:45)
--- NOTE | 2017-01-22 11:47 | PDOC3 ---
Discharge Summary Visit Information Date of Admission: Jan 20, 2017 Date of Discharge: Jan 22, 2017 Admitting Diagnosis: left knee hematoma Final Diagnosis right knee superficial hematoma with large bulla, afib, rate controlled, sinus fall, likely from known orthostatic hypotension obesity, BMI 38 back pain, spinal stenosis, Brief Hospital Course Allergies Allergies Coded Allergies Type Severity Reaction Last Updated Verified Sulfa (Sulfonamide Antibiotics) Allergy Unknown 01/19/17 Yes Vital Signs Vital Signs Date Time Temp Pulse Resp B/P (MAP) Pulse Ox O2 Delivery O2 Flow Rate FiO2 01/22/17 08:26 Room Air 01/22/17 07:00 97.9 64 18 140/50 (80) 94 97.9 Lab Results Laboratory Tests Test 01/21/17 15:45 01/22/17 04:40 White Blood Count 8.1 x10^3/uL (4.0-11.0) 7.9 x10^3/uL (4.0-11.0) Red Blood Count 3.09 x10^6/uL (3.50-5.40) 2.83 x10^6/uL (3.50-5.40) Hemoglobin 9.5 g/dL (12.0-15.5) 8.8 g/dL (12.0-15.5) Hematocrit 29.3 % (36.0-47.0) 26.7 % (36.0-47.0) Mean Corpuscular Volume 95 fL (79-100) 94 fL (79-100) Mean Corpuscular Hemoglobin 31 pg (25-35) 31 pg (25-35) Mean Corpuscular Hemoglobin Concent 33 g/dL (31-37) 33 g/dL (31-37) Red Cell Distribution Width 14.1 % (11.5-14.5) 13.9 % (11.5-14.5) Platelet Count 181 x10^3/uL (140-400) 170 x10^3/uL (140-400) Sodium Level 140 mmol/L (136-145) 139 mmol/L (136-145) Potassium Level 4.3 mmol/L (3.5-5.1) 4.0 mmol/L (3.5-5.1) Chloride Level 104 mmol/L (98-107) 106 mmol/L (98-107) Carbon Dioxide Level 31 mmol/L (21-32) 31 mmol/L (21-32) Anion Gap 5 (6-14) 2 (6-14) Blood Urea Nitrogen 20 mg/dL (7-20) 20 mg/dL (7-20) Creatinine 1.1 mg/dL (0.6-1.0) 1.0 mg/dL (0.6-1.0) Estimated GFR (Cockcroft-Gault) 49.1 54.8 BUN/Creatinine Ratio 18 (6-20) Glucose Level 136 mg/dL (70-99) 103 mg/dL (70-99) Calcium Level 8.1 mg/dL (8.5-10.1) 7.9 mg/dL (8.5-10.1) Total Bilirubin 0.3 mg/dL (0.2-1.0) Aspartate Amino Transf (AST/SGOT) 13 U/L (15-37) Alanine Aminotransferase (ALT/SGPT) 17 U/L (14-59) Alkaline Phosphatase 82 U/L (46-116) Total Protein 6.1 g/dL (6.4-8.2) Albumin 2.9 g/dL (3.4-5.0) Albumin/Globulin Ratio 0.9 (1.0-1.7) Thyroid Stimulating Hormone (TSH) 2.864 uIU/mL (0.358-3.74) Neutrophils (%) (Auto) 55 % (31-73) Lymphocytes (%) (Auto) 33 % (24-48) Monocytes (%) (Auto) 8 % (0-9) Eosinophils (%) (Auto) 3 % (0-3) Basophils (%) (Auto) 1 % (0-3) Neutrophils # (Auto) 4.3 x10^3uL (1.8-7.7) Lymphocytes # (Auto) 2.6 x10^3/uL (1.0-4.8) Monocytes # (Auto) 0.6 x10^3/uL (0.0-1.1) Eosinophils # (Auto) 0.3 x10^3/uL (0.0-0.7) Basophils # (Auto) 0.1 x10^3/uL (0.0-0.2) Laboratory Tests Test 01/21/17 15:45 01/22/17 04:40 White Blood Count 8.1 x10^3/uL (4.0-11.0) 7.9 x10^3/uL (4.0-11.0) Red Blood Count 3.09 x10^6/uL (3.50-5.40) 2.83 x10^6/uL (3.50-5.40) Hemoglobin 9.5 g/dL (12.0-15.5) 8.8 g/dL (12.0-15.5) Hematocrit 29.3 % (36.0-47.0) 26.7 % (36.0-47.0) Mean Corpuscular Volume 95 fL (79-100) 94 fL (79-100) Mean Corpuscular Hemoglobin 31 pg (25-35) 31 pg (25-35) Mean Corpuscular Hemoglobin Concent 33 g/dL (31-37) 33 g/dL (31-37) Red Cell Distribution Width 14.1 % (11.5-14.5) 13.9 % (11.5-14.5) Platelet Count 181 x10^3/uL (140-400) 170 x10^3/uL (140-400) Sodium Level 140 mmol/L (136-145) 139 mmol/L (136-145) Potassium Level 4.3 mmol/L (3.5-5.1) 4.0 mmol/L (3.5-5.1) Chloride Level 104 mmol/L (98-107) 106 mmol/L (98-107) Carbon Dioxide Level 31 mmol/L (21-32) 31 mmol/L (21-32) Anion Gap 5 (6-14) 2 (6-14) Blood Urea Nitrogen 20 mg/dL (7-20) 20 mg/dL (7-20) Creatinine 1.1 mg/dL (0.6-1.0) 1.0 mg/dL (0.6-1.0) Estimated GFR (Cockcroft-Gault) 49.1 54.8 BUN/Creatinine Ratio 18 (6-20) Glucose Level 136 mg/dL (70-99) 103 mg/dL (70-99) Calcium Level 8.1 mg/dL (8.5-10.1) 7.9 mg/dL (8.5-10.1) Total Bilirubin 0.3 mg/dL (0.2-1.0) Aspartate Amino Transf (AST/SGOT) 13 U/L (15-37) Alanine Aminotransferase (ALT/SGPT) 17 U/L (14-59) Alkaline Phosphatase 82 U/L (46-116) Total Protein 6.1 g/dL (6.4-8.2) Albumin 2.9 g/dL (3.4-5.0) Albumin/Globulin Ratio 0.9 (1.0-1.7) Thyroid Stimulating Hormone (TSH) 2.864 uIU/mL (0.358-3.74) Neutrophils (%) (Auto) 55 % (31-73) Lymphocytes (%) (Auto) 33 % (24-48) Monocytes (%) (Auto) 8 % (0-9) Eosinophils (%) (Auto) 3 % (0-3) Basophils (%) (Auto) 1 % (0-3) Neutrophils # (Auto) 4.3 x10^3uL (1.8-7.7) Lymphocytes # (Auto) 2.6 x10^3/uL (1.0-4.8) Monocytes # (Auto) 0.6 x10^3/uL (0.0-1.1) Eosinophils # (Auto) 0.3 x10^3/uL (0.0-0.7) Basophils # (Auto) 0.1 x10^3/uL (0.0-0.2) Brief Hospital Course Ms. Stanley is a 71 old admit for left knee superficial hematoma with large bulla, s/p fall, likely from known orthostatic hypotension afib, rate controlled, sinus, on eliquis, which likely had hematoma worse started fludocortisone, BP stable, afib controlled CV consult, will follow, home health, they request [place] back pain, spinal stenosis, she has an outpatient appointment on 01/[address], she reports her MRI was done at [facility] at the [facility], Discharge Information Condition at Discharge: Improved Follow Up: Weeks Disposition/Orders: D/C to Home w/ HH Scheduled Apixaban (Eliquis), 5 MG PO BID, (Reported) Aspirin (Aspirin Ec), 81 MG PO DAILYWBKFT Doxycycline Hyclate (Doxycycline Hyclate), 1 CAP PO BID Fludrocortisone Acetate (Fludrocortisone Acetate), 0.1 MG PO DAILY Omeprazole Magnesium (Prilosec Otc), 20 MG PO DAILY, (Reported) Propafenone Hcl (Propafenone Hcl), 225 MG PO Q8HRS, (Reported) Miscellaneous Medications Docusate Sodium (Docusate Sodium), 100 MG PO, (Reported) Patient Instructions Patient Instructions > 35 minutes face to face and exam DOUGLAS VIDALES MD Jan 22, 2017 11:47
[2017-01-22] MEDS ORDERED: cefTRIAXone IV Push 1 GM VIAL. IVP SCH (12:00)
[2017-01-22] MEDS ORDERED: TRAM50TA PO (14:27)
[2017-01-22] MEDS ORDERED: DOXYCYCLINE HYCLATE 100 MG TABLET PO SCH (21:00)
== END 2017-01-22 15:30 | disposition home health service (06) | DRG 605 ==
LOC: 4 NORTH 19:50
PROVIDERS: ADMIT Internal Medicine; ATTEND Internal Medicine
PROC: 0S9D3ZZ Drainage of Left Knee Joint, Percutaneous Approach (ICD-10-PCS; principal; 2017-01-20)
DX: S80.02XA Contusion of left knee, initial encounter (principal); I48.0 Paroxysmal atrial fibrillation; I11.0 Hypertensive heart disease with heart failure; I50.9 Heart failure, unspecified; M25.00 Hemarthrosis, unspecified joint; I48.91 Unspecified atrial fibrillation; E66.9 Obesity, unspecified; I95.1 Orthostatic hypotension; W18.30XA Fall on same level, unspecified, initial encounter; M48.061 Spinal stenosis, lumbar region without neurogenic claudication; M25.662 Stiffness of left knee, not elsewhere classified; R29.6 Repeated falls; I35.1 Nonrheumatic aortic (valve) insufficiency; K59.00 Constipation, unspecified; M17.0 Bilateral primary osteoarthritis of knee; M25.462 Effusion, left knee; K21.9 Gastro-esophageal reflux disease without esophagitis; Z68.38 Body mass index [BMI] 38.0-38.9, adult; Z79.1 Long term (current) use of non-steroidal anti-inflammatories (NSAID); Z79.01 Long term (current) use of anticoagulants; Y93.89 Activity, other specified; Y92.009 Unspecified place in unspecified non-institutional (private) residence as the place of occurrence of the external cause; Y99.8 Other external cause status; Z88.2 Allergy status to sulfonamides; Z90.49 Acquired absence of other specified parts of digestive tract; Z90.710 Acquired absence of both cervix and uterus; Z98.49 Cataract extraction status, unspecified eye
CPT/HCPCS: 36415; 73560; 80048; 80053; 84443; 85025; 85027; 85610; 93005; 93306; J0696; J7030; 97530